=== PATIENT | female | born 1980 | race Asian ===

== ENCOUNTER 2024-06-30 18:02 | Emergency (ER) | payer OTHER ==
[~2024-06-30] VITALS: Ht 162.6 cm; Wt 69.4 kg
[2024-06-30 18:21] VITALS: BP 126/83; PULSE 90; RESP 20; TEMP 98.1; O2SAT 96
[2024-06-30] MEDS: KETOROLAC 30 MG/ML VIAL IM ONE (20:00)
[2024-06-30] MEDS ORDERED: NAPR-1847 PO (20:05)
[2024-06-30] MEDS ORDERED: ACET-8905 PO (20:05)
[2024-06-30] MEDS ORDERED: BACI-418 TP (20:06)
[2024-06-30] MEDS: BACITRACIN OINT 500 UNITS/GM PKT TP ONE (20:08)
[2024-06-30 21:10] VITALS: BP 126/78; PULSE 79; RESP 22; TEMP 98.4; O2SAT 95
== END 2024-06-30 21:10 | disposition home or self-care (01) ==
LOC: MED 18:02
DX: S52.501A Unspecified fracture of the lower end of right radius, initial encounter for closed fracture (principal); S80.212A Abrasion, left knee, initial encounter; Z79.899 Other long term (current) drug therapy; W18.39XA Other fall on same level, initial encounter; Y93.89 Activity, other specified; Y92.480 Sidewalk as the place of occurrence of the external cause; Y99.8 Other external cause status
CPT/HCPCS: 29130; 73100; 73562; 96372; 99284; J1885